=== PATIENT | male | born 1985 | race African-American/Black ===

== ENCOUNTER 2017-01-19 14:59 | Emergency (ER) | payer SELFPAY ==
--- NOTE | 2017-01-19 15:19 | RAD ---
AP CHEST: Indication: Chest pain. Comparison: 04-18-16 FINDINGS: Lungs are clear. Cardiomediastinal silhouette is within normal limits. Costophrenic angles excluded. No acute osseous abnormality is evident. IMPRESSION: No acute cardiopulmonary abnormality. POS: [facility]
[2017-01-19 15:23] LABS: #Basophils 0.1 thou/uL (0.0-0.2); #Eosinphils 0.2 thou/uL (0.0-0.7); #Lymphocytes 3.7 thou/uL (1.20-3.40); #Monocytes 0.8 thou/uL (0.11-0.59); #Neutrophils 4.7 thou/uL (1.40-6.50); %Eosinophils 2.2 % (0.0-10.0); Hematocrit 48.3 % (42.0-52.0); Mean Platelet Volume 6.4 fL (7.4-10.4); Red Blood Cell (RBC) Count 5.28 mill/uL (4.70-6.10); White Blood Cell (WBC) Count 9.4 thou/uL (4.8-10.8)
[2017-01-19 15:44] LABS: ALT (SGPT) 24 U/L (8-55); AST (SGOT) 25 U/L (5-34); Alkaline Phosphatase 85 U/L (40-150); Anion Gap 16 mmol/L (10-20); BUN (Urea Nitrogen) 9 mg/dL (8.9-20.6); Bilirubin, Total 0.9 mg/dL (0.2-1.2); CK (CPK) 362 U/L (30-200); Calc. Creatinine Clearance 0 mL/min (70-130); Calcium 9.6 mg/dL (7.8-10.44); Carbon Dioxide 25 mmol/L (22-29); Chloride 102 mmol/L (98-107); Estimated GFR-MDRD 84; Globulin 3.3 g/dL (2.4-3.5); Lipase 22 U/L (8-78); Protein, Total 7.5 g/dL (6.0-8.3)
[2017-01-19 15:51] LABS: Troponin I Less than 0.010 ng/mL (< 0.028)
[2017-01-19] MEDS ORDERED: Ketorolac Tromethamine 60 MG/2 ML VIAL ONE (17:21)
== END 2017-01-19 17:40 | disposition home or self-care (01) ==
LOC: ERS 14:59
DX: S29.011A Strain of muscle and tendon of front wall of thorax, initial encounter (principal); S29.012A Strain of muscle and tendon of back wall of thorax, initial encounter; S39.012A Strain of muscle, fascia and tendon of lower back, initial encounter; X50.0XXA Overexertion from strenuous movement or load, initial encounter
CPT/HCPCS: 71010; 80053; 82553; 83690; 84484; 85025; 93005; 96372; J1885

== ENCOUNTER 2017-03-06 10:38 | Emergency (ER) | payer SELFPAY | END 2017-03-06 11:25 | disposition home or self-care (01) | LOC: ERS 10:38 | DX: Z00.00 Encounter for general adult medical examination without abnormal findings (principal) | CPT/HCPCS: 99283 ==

== ENCOUNTER 2017-07-27 14:36 | Emergency (ER) | payer SELFPAY, OTHER ==
[2017-07-27 15:13] LABS: #Eosinphils 0.3 thou/uL (0.0-0.7); #Lymphocytes 2.9 thou/uL (1.20-3.40); #Monocytes 0.6 thou/uL (0.11-0.59); #Neutrophils 2.4 thou/uL (1.40-6.50); %Basophils 0.7 % (0.0-1.0); %Eosinophils 4.9 % (0.0-10.0); %Lymphocytes 46.2 % (21.0-51.0); %Monocytes 9.1 % (0.0-10.0); %Neutrophils 39.1 % (42.0-75.0); Hemoglobin 15.4 g/dL (14.0-18.0); Mean Corpuscular HGB CONC 33.3 g/dL (32.0-36.0); Mean Corpuscular Hemoglobin 29.7 pg (27.0-31.0); Mean Corpuscular Volume 89.4 fl (80.0-94.0); Mean Platelet Volume 6.5 fL (7.4-10.4); Platelet Count 373 thou/uL (130-400); RBC Distribution Width 12.4 % (11.5-14.5); Red Blood Cell (RBC) Count 5.17 mill/uL (4.70-6.10); White Blood Cell (WBC) Count 6.2 thou/uL (4.8-10.8)
[2017-07-27 15:34] LABS: ALT (SGPT) 18 U/L (8-55); AST (SGOT) 16 U/L (5-34); Albumin 4.2 g/dL (3.5-5.0); Alkaline Phosphatase 88 U/L (40-150); Anion Gap 11 mmol/L (10-20); BUN (Urea Nitrogen) 9 mg/dL (8.9-20.6); Bilirubin, Total 0.7 mg/dL (0.2-1.2); CK (CPK) 118 U/L (30-200); Calc. Creatinine Clearance 0 mL/min (70-130); Calcium 9.4 mg/dL (7.8-10.44); Carbon Dioxide 29 mmol/L (22-29); Chloride 104 mmol/L (98-107); Estimated GFR-MDRD 83; Globulin 2.9 g/dL (2.4-3.5); Glucose 96 mg/dL (70-105); Potassium 3.8 mmol/L (3.5-5.1); Protein, Total 7.1 g/dL (6.0-8.3); Sodium 140 mmol/L (136-145)
[2017-07-27 15:40] LABS: Troponin I Less than 0.010 ng/mL (< 0.028)
--- NOTE | 2017-07-27 15:56 | RAD ---
CHEST 1 VIEW: Date: 07/27/17 HISTORY: Chest pain and dizziness. FINDINGS: Heart size and mediastinum are within normal limits. Lungs are clear of infiltrates. Right hemidiaphr agm is slightly elevated. No change since the 01/19/17 study. IMPRESSION: No active intrathoracic disease. POS: [facility]
--- NOTE | 2017-10-02 14:22 | EKG ---
Test Reason : Blood Pressure : / mmHG Vent. Rate : 095 BPM Atrial Rate : 095 BPM P-R Int : 134 ms QRS Dur : 080 ms QT Int : 344 ms P-R-T Axes : 042 039 026 degrees QTc Int : 432 ms Normal sinus rhythm Normal ECG Confirmed by SALLY HAYES, PAM White ([id number]), deputy editor in chief CLAUDIA OCHOA ([id number]) on 10/02/2017 2:21:30 PM Referred By: Confirmed By:PAM ZAVALA MD
== END 2017-07-27 16:45 | disposition home or self-care (01) ==
LOC: ERS 14:36
DX: R07.89 Other chest pain (principal); F41.9 Anxiety disorder, unspecified; F17.210 Nicotine dependence, cigarettes, uncomplicated
CPT/HCPCS: 36415; 71045; 80053; 82553; 84484; 85025; 93005

== ENCOUNTER 2017-08-07 11:18 | Emergency (ER) | payer SELFPAY ==
[2017-08-07 11:51] LABS: Hemoglobin 14.4 g/dL (14.0-18.0); Mean Corpuscular HGB CONC 32.3 g/dL (32.0-36.0); Mean Corpuscular Hemoglobin 28.8 pg (27.0-31.0); Mean Corpuscular Volume 89.2 fl (80.0-94.0); Mean Platelet Volume 6.3 fL (7.4-10.4); Platelet Count 319 thou/uL (130-400); RBC Distribution Width 12.4 % (11.5-14.5); Red Blood Cell (RBC) Count 5.02 mill/uL (4.70-6.10)
[2017-08-07 12:11] LABS: CKMB 1.9 ng/mL (0-6.6); Troponin I Less than 0.010 ng/mL (< 0.028)
[2017-08-07 12:12] LABS: ALT (SGPT) 19 U/L (8-55); AST (SGOT) 22 U/L (5-34); Albumin 4.4 g/dL (3.5-5.0); Alkaline Phosphatase 79 U/L (40-150); Anion Gap 12 mmol/L (10-20); BUN (Urea Nitrogen) 11 mg/dL (8.9-20.6); Bilirubin, Total 1.5 mg/dL (0.2-1.2); CK (CPK) 343 U/L (30-200); Calc. Creatinine Clearance 0 mL/min (70-130); Calcium 9.7 mg/dL (7.8-10.44); Carbon Dioxide 26 mmol/L (22-29); Chloride 104 mmol/L (98-107); Estimated GFR-MDRD Greater than 90; Globulin 2.9 g/dL (2.4-3.5); Glucose 90 mg/dL (70-105); Potassium 3.9 mmol/L (3.5-5.1); Protein, Total 7.3 g/dL (6.0-8.3); Sodium 138 mmol/L (136-145)
[2017-08-07 12:29] LABS: Eosinophils 1 % (0-10); Lymphocytes 57 % (21-51); MDiff Complete? YES; Monocytes 7 % (0-10); Neutrophil 34 % (42-75); Reactive Lymphocytes 1 % (0-10)
== END 2017-08-07 12:53 | disposition home or self-care (01) ==
LOC: ERS 11:18
DX: E86.0 Dehydration (principal); F41.9 Anxiety disorder, unspecified; F17.210 Nicotine dependence, cigarettes, uncomplicated
CPT/HCPCS: 80053; 82553; 84484; 85025; 93005; 96360; 99406

== ENCOUNTER 2017-08-29 15:19 | Emergency (ER) | payer SELFPAY | END 2017-08-29 16:00 | disposition left against medical advice (07) | LOC: ERS 15:19 | DX: Z53.21 Procedure and treatment not carried out due to patient leaving prior to being seen by health care provider (principal) ==

== ENCOUNTER 2017-08-31 12:36 | Emergency (ER) | payer SELFPAY ==
--- NOTE | 2017-08-31 13:32 | RAD ---
CHEST PA AND LATERAL: Date: 08/31/17 HISTORY: 32-year-old male with history of cough, chest congestion, and chest pain. COMPARISON: 07/27/17. FINDINGS: Heart size is normal. The lungs are clear. The apices are not completely included on the PA radiograp h. IMPRESSION: No acute intrathoracic disease. Stable from prior study. No evidence for pneumonia. POS: [facility]
[2017-08-31] MEDS ORDERED: Dexamethasone 10 MG/ML VIAL ONE (14:06)
== END 2017-08-31 14:34 | disposition home or self-care (01) ==
LOC: ERS 12:36
DX: J40 Bronchitis, not specified as acute or chronic (principal); F41.9 Anxiety disorder, unspecified; F17.210 Nicotine dependence, cigarettes, uncomplicated
CPT/HCPCS: 71046; 93005; 96372; J1100

== ENCOUNTER 2017-09-02 19:52 | Emergency (ER) | payer SELFPAY ==
[2017-09-02 20:53] LABS: Troponin I Less than 0.010 ng/mL (< 0.028)
== END 2017-09-02 21:10 | disposition home or self-care (01) ==
LOC: ERS 19:52
DX: R07.89 Other chest pain (principal); F41.9 Anxiety disorder, unspecified; F17.210 Nicotine dependence, cigarettes, uncomplicated; Z71.6 Tobacco abuse counseling
CPT/HCPCS: 36415; 82553; 84484; 93005; 99406

== ENCOUNTER 2017-09-10 08:55 | Emergency (ER) | payer SELFPAY ==
[2017-09-10 09:28] LABS: #Basophils 0.1 thou/uL (0.0-0.2); #Eosinphils 0.3 thou/uL (0.0-0.7); #Lymphocytes 2.8 thou/uL (1.20-3.40); #Monocytes 0.6 thou/uL (0.11-0.59); #Neutrophils 3.5 thou/uL (1.40-6.50); %Basophils 1.4 % (0.0-1.0); %Eosinophils 3.5 % (0.0-10.0); %Lymphocytes 38.1 % (21.0-51.0); %Monocytes 8.6 % (0.0-10.0); %Neutrophils 48.4 % (42.0-75.0); Hemoglobin 15.9 g/dL (14.0-18.0); Mean Corpuscular HGB CONC 32.4 g/dL (32.0-36.0); Mean Corpuscular Hemoglobin 29.2 pg (27.0-31.0); Mean Corpuscular Volume 90.1 fl (80.0-94.0); Mean Platelet Volume 6.3 fL (7.4-10.4); Platelet Count 342 thou/uL (130-400); RBC Distribution Width 12.4 % (11.5-14.5); Red Blood Cell (RBC) Count 5.46 mill/uL (4.70-6.10); White Blood Cell (WBC) Count 7.3 thou/uL (4.8-10.8)
[2017-09-10 09:57] LABS: CKMB 0.7 ng/mL (0-6.6); Troponin I Less than 0.010 ng/mL (< 0.028)
[2017-09-10 09:57] LABS: ALT (SGPT) 23 U/L (8-55); AST (SGOT) 20 U/L (5-34); Albumin 4.4 g/dL (3.5-5.0); Alkaline Phosphatase 93 U/L (40-150); Anion Gap 12 mmol/L (10-20); BUN (Urea Nitrogen) 9 mg/dL (8.9-20.6); Bilirubin, Total 0.5 mg/dL (0.2-1.2); CK (CPK) 111 U/L (30-200); Calc. Creatinine Clearance 0 mL/min (70-130); Calcium 9.8 mg/dL (7.8-10.44); Carbon Dioxide 29 mmol/L (22-29); Chloride 103 mmol/L (98-107); Estimated GFR-MDRD 85; Globulin 3.2 g/dL (2.4-3.5); Glucose 93 mg/dL (70-105); Protein, Total 7.6 g/dL (6.0-8.3); Sodium 140 mmol/L (136-145)
--- NOTE | 2017-09-10 10:20 | RAD ---
PA AND LATERAL VIEWS OF CHEST: Date: 09/10/17 HISTORY: Chest pain. FINDINGS: Comparison made with exam of 08/31/17. The heart size is normal. Continued mild elevation of the right hemidiaphragm. No focal areas of cons olidation, pneumothorax, or pleural effusions are seen. No acute osseous abnormalities are identified . IMPRESSION: No radiographic evidence of acute cardiopulmonary process. POS: [facility]
== END 2017-09-10 10:45 | disposition home or self-care (01) ==
LOC: ERS 08:55
DX: F41.9 Anxiety disorder, unspecified (principal); R07.89 Other chest pain; Z71.6 Tobacco abuse counseling; F17.210 Nicotine dependence, cigarettes, uncomplicated
CPT/HCPCS: 36415; 71046; 80053; 82550; 82553; 84484; 85025; 93005; 99406

== ENCOUNTER 2017-09-14 10:43 | Emergency (ER) | payer SELFPAY ==
[2017-09-14] MEDS ORDERED: Ondansetron ODT 4 MG TAB ONE ×2 (11:18→11:26)
--- NOTE | 2017-10-02 15:43 | EKG ---
Test Reason : Blood Pressure : / mmHG Vent. Rate : 092 BPM Atrial Rate : 092 BPM P-R Int : 138 ms QRS Dur : 086 ms QT Int : 356 ms P-R-T Axes : 036 040 023 degrees QTc Int : 440 ms Poor data quality, interpretation may be adversely affected Normal sinus rhythm Normal ECG Confirmed by NICHO HAYES, HARRISON ([id number]), videotape editor CLAUDIA OHCOA ([id number]) on 10/02/2017 3:43:04 PM Referred By: Confirmed By:HARRISON TORRE MD
== END 2017-09-14 11:26 | disposition home or self-care (01) ==
LOC: ERS 10:43
DX: F14.10 Cocaine abuse, uncomplicated (principal); R11.2 Nausea with vomiting, unspecified; F41.9 Anxiety disorder, unspecified; F17.210 Nicotine dependence, cigarettes, uncomplicated
CPT/HCPCS: 93005; 99283; Q0162

== ENCOUNTER 2017-09-30 13:23 | Emergency (ER) | payer OTHER, SELFPAY ==
--- NOTE | 2017-09-30 14:07 | RAD ---
THREE VIEWS LUMBAR SPINE: Date: 09-30-17 Comparison: None. History: Fall, pain. FINDINGS: Lumbar pedicle are intact on frontal imaging. Lateral imaging demonstrates normal vertebral body heig ht and alignment. No displaced fracture. IMPRESSION: No acute findings. POS: [facility]
--- NOTE | 2017-09-30 14:35 | RAD ---
SACRUM AND COCCYX STANDARD: HISTORY: Fall, pain. COMPARISON: Lumbar spine radiograph same day. FINDINGS: The obturator rings are intact. SI joints are intact. Sacral struts are intact. The coccyx does not appear to be fractured nor does the sacrum. Soft tissue swelling of the buttocks . IMPRESSION: No definite fracture of the sacrum or coccyx. POS: [facility]
[2017-09-30] MEDS ORDERED: Acetaminophen 500 MG TAB ONE (14:51)
== END 2017-09-30 15:22 | disposition home or self-care (01) ==
LOC: ERS 13:23
DX: S39.012A Strain of muscle, fascia and tendon of lower back, initial encounter (principal); F41.9 Anxiety disorder, unspecified; Z87.891 Personal history of nicotine dependence; W17.89XA Other fall from one level to another, initial encounter
CPT/HCPCS: 72100; 72220

== ENCOUNTER 2017-10-02 11:16 | Emergency (ER) | payer SELFPAY ==
[2017-10-02 11:46] LABS: #Basophils 0.1 thou/uL (0.0-0.2); #Eosinphils 0.2 thou/uL (0.0-0.7); #Monocytes 0.5 thou/uL (0.11-0.59); #Neutrophils 2.6 thou/uL (1.40-6.50); %Basophils 1.2 % (0.0-1.0); %Eosinophils 3.5 % (0.0-10.0); %Lymphocytes 46.9 % (21.0-51.0); %Monocytes 8.2 % (0.0-10.0); %Neutrophils 40.2 % (42.0-75.0); Mean Corpuscular HGB CONC 34.2 g/dL (32.0-36.0); Mean Corpuscular Volume 87.8 fL (78.0-98.0); Mean Platelet Volume 6.4 fL (7.4-10.4); Platelet Count 320 thou/uL (130-400); RBC Distribution Width 12.1 % (11.5-14.5); Red Blood Cell (RBC) Count 5.35 mill/uL (4.70-6.10); White Blood Cell (WBC) Count 6.5 thou/uL (4.8-10.8)
[2017-10-02] MEDS ORDERED: Ondansetron ODT 4 MG TAB ONE (11:48)
[2017-10-02 12:06] LABS: ALT (SGPT) 21 U/L (8-55); AST (SGOT) 19 U/L (5-34); Albumin 4.7 g/dL (3.5-5.0); Alkaline Phosphatase 75 U/L (40-150); Anion Gap 15 mmol/L (10-20); BUN (Urea Nitrogen) 11 mg/dL (8.9-20.6); Calc. Creatinine Clearance 0 mL/min (70-130); Calcium 10.2 mg/dL (7.8-10.44); Carbon Dioxide 26 mmol/L (22-29); Chloride 104 mmol/L (98-107); Estimated GFR-MDRD 84; Globulin 3.2 g/dL (2.4-3.5); Glucose 86 mg/dL (70-105); Potassium 3.9 mmol/L (3.5-5.1); Protein, Total 7.9 g/dL (6.0-8.3); Sodium 141 mmol/L (136-145)
--- NOTE | 2017-10-02 12:08 | RAD ---
SINGLE VIEW OF THE CHEST: COMPARISON: 07/27/17. HISTORY: Chest pain and vomiting. FINDINGS: Single view of the chest shows a normal sized cardiomediastinal silhouette. There is no evidence of c onsolidation, mass, or pleural effusion. The bones are unremarkable. IMPRESSION: No evidence of acute cardiopulmonary disease. POS: [facility]
[2017-10-02 12:11] LABS: CKMB 2.7 ng/mL (0-6.6); Troponin I Less than 0.010 ng/mL (< 0.028)
== END 2017-10-02 12:45 | disposition home or self-care (01) ==
LOC: ERS 11:16
DX: R07.89 Other chest pain (principal); F41.9 Anxiety disorder, unspecified; F17.210 Nicotine dependence, cigarettes, uncomplicated; Z71.6 Tobacco abuse counseling; W11.XXXA Fall on and from ladder, initial encounter
CPT/HCPCS: 71045; 80053; 82553; 84484; 85025; 93005; 99406; Q0162

== ENCOUNTER 2017-10-03 00:27 | Emergency (ER) | payer SELFPAY ==
[2017-10-03 01:05] LABS: #Eosinphils 0.3 thou/uL (0.0-0.7); #Lymphocytes 3.4 thou/uL (1.20-3.40); #Monocytes 0.6 thou/uL (0.11-0.59); %Basophils 0.5 % (0.0-1.0); %Eosinophils 4.1 % (0.0-10.0); %Monocytes 7.8 % (0.0-10.0); %Neutrophils 40.7 % (42.0-75.0); Hemoglobin 15.1 g/dL (14.0-18.0); Mean Corpuscular HGB CONC 34.4 g/dL (32.0-36.0); Mean Corpuscular Hemoglobin 30.3 pg (27.0-31.0); Mean Corpuscular Volume 88.1 fL (78.0-98.0); Mean Platelet Volume 6.5 fL (7.4-10.4); Platelet Count 312 thou/uL (130-400); Red Blood Cell (RBC) Count 4.99 mill/uL (4.70-6.10); White Blood Cell (WBC) Count 7.3 thou/uL (4.8-10.8)
[2017-10-03 01:22] LABS: ALT (SGPT) 19 U/L (8-55); AST (SGOT) 20 U/L (5-34); Albumin 4.3 g/dL (3.5-5.0); Alkaline Phosphatase 94 U/L (40-150); Anion Gap 13 mmol/L (10-20); BUN (Urea Nitrogen) 15 mg/dL (8.9-20.6); Bilirubin, Total 0.6 mg/dL (0.2-1.2); Calc. Creatinine Clearance 0 mL/min (70-130); Calcium 9.5 mg/dL (7.8-10.44); Carbon Dioxide 27 mmol/L (22-29); Chloride 103 mmol/L (98-107); Estimated GFR-MDRD 82; Glucose 116 mg/dL (70-105); Potassium 3.6 mmol/L (3.5-5.1); Protein, Total 7.3 g/dL (6.0-8.3); Sodium 139 mmol/L (136-145)
[2017-10-03 01:26] LABS: Troponin I Less than 0.010 ng/mL (< 0.028)
== END 2017-10-03 02:22 | disposition home or self-care (01) ==
LOC: ERS 00:27
DX: R55 Syncope and collapse (principal); F41.9 Anxiety disorder, unspecified; F17.210 Nicotine dependence, cigarettes, uncomplicated; Z71.6 Tobacco abuse counseling
CPT/HCPCS: 36415; 80053; 82553; 84484; 85025; 93005; 99406

== ENCOUNTER 2017-10-10 12:19 | Emergency (ER) | payer SELFPAY ==
[2017-10-10] MEDS ORDERED: Ibuprofen 800 MG TAB ONE (13:17)
== END 2017-10-10 13:24 | disposition home or self-care (01) ==
LOC: ERS 12:19
DX: R51 Headache (principal); F41.9 Anxiety disorder, unspecified; F17.210 Nicotine dependence, cigarettes, uncomplicated
CPT/HCPCS: 99283

== ENCOUNTER 2017-12-05 15:46 | Emergency (ER) | payer SELFPAY ==
[2017-12-05 16:24] LABS: #Basophils 0.1 thou/uL (0.0-0.2); #Eosinphils 0.2 thou/uL (0.0-0.7); #Lymphocytes 3.1 thou/uL (1.20-3.40); #Monocytes 0.4 thou/uL (0.11-0.59); %Basophils 1.1 % (0.0-1.0); %Eosinophils 3.2 % (0.0-10.0); %Lymphocytes 45.4 % (21.0-51.0); %Monocytes 6.4 % (0.0-10.0); %Neutrophils 43.9 % (42.0-75.0); Hemoglobin 16.2 g/dL (14.0-18.0); Mean Corpuscular HGB CONC 34.4 g/dL (32.0-36.0); Mean Corpuscular Hemoglobin 30.4 pg (27.0-31.0); Mean Corpuscular Volume 88.3 fL (78.0-98.0); Mean Platelet Volume 6.5 fL (7.4-10.4); Platelet Count 355 thou/uL (130-400); Red Blood Cell (RBC) Count 5.34 mill/uL (4.70-6.10); White Blood Cell (WBC) Count 6.9 thou/uL (4.8-10.8)
[2017-12-05 16:49] LABS: ALT (SGPT) 19 U/L (8-55); AST (SGOT) 16 U/L (5-34); Albumin 4.5 g/dL (3.5-5.0); Alkaline Phosphatase 76 U/L (40-150); Anion Gap 12 mmol/L (10-20); BUN (Urea Nitrogen) 9 mg/dL (8.9-20.6); Bilirubin, Total 0.9 mg/dL (0.2-1.2); CK (CPK) 123 U/L (30-200); Calc. Creatinine Clearance 0 mL/min (70-130); Calcium 9.9 mg/dL (7.8-10.44); Carbon Dioxide 28 mmol/L (22-29); Chloride 104 mmol/L (98-107); Estimated GFR-MDRD 90; Globulin 3.3 g/dL (2.4-3.5); Glucose 100 mg/dL (70-105); Potassium 3.7 mmol/L (3.5-5.1); Protein, Total 7.8 g/dL (6.0-8.3); Sodium 140 mmol/L (136-145)
[2017-12-05 16:54] LABS: Troponin I Less than 0.010 ng/mL (< 0.028)
[2017-12-05] MEDS ORDERED: Lorazepam 1 MG TAB ONE (17:09)
--- NOTE | 2017-12-05 17:16 | RAD ---
PA AND LATERAL CHEST X-RAY: 12/05/2017 HISTORY: Chest pain. COMPARISON: 09/10/2017 FINDINGS: The cardiac silhouette and pulmonary vasculature are within normal limits. There is mild elevation o f the right hemidiaphragm. There has been no interval change from the prior study. IMPRESSION: No acute cardiopulmonary process. POS: [facility]
--- NOTE | 2017-12-09 13:39 | EKG ---
Test Reason : Blood Pressure : / mmHG Vent. Rate : 069 BPM Atrial Rate : 069 BPM P-R Int : 136 ms QRS Dur : 088 ms QT Int : 366 ms P-R-T Axes : 020 036 008 degrees QTc Int : 392 ms Sinus rhythm with sinus arrhythmia with occasional Premature ventricular complexes T wave abnormality, consider anterior ischemia Abnormal ECG Confirmed by MERCEDES GHOSH M.D. ([id number]), visual effects editor CLAUDIA OCHOA ([id number]) on 12/09/2017 1:39:21 PM Referred By: Confirmed By:MERCEDES GHOSH M.D.
== END 2017-12-05 17:52 | disposition home or self-care (01) ==
LOC: ERS 15:46
DX: R00.2 Palpitations (principal); F41.9 Anxiety disorder, unspecified; F17.210 Nicotine dependence, cigarettes, uncomplicated
CPT/HCPCS: 36415; 71046; 80053; 82553; 84484; 85025; 93005

== ENCOUNTER 2017-12-14 00:53 | Emergency (ER) | payer SELFPAY ==
[2017-12-14 01:46] LABS: #Basophils 0.1 thou/uL (0.0-0.2); #Eosinphils 0.3 thou/uL (0.0-0.7); #Lymphocytes 3.3 thou/uL (1.20-3.40); #Monocytes 0.5 thou/uL (0.11-0.59); #Neutrophils 2.6 thou/uL (1.40-6.50); %Basophils 1.6 % (0.0-1.0); %Lymphocytes 48.6 % (21.0-51.0); %Neutrophils 37.8 % (42.0-75.0); Hemoglobin 14.6 g/dL (14.0-18.0); Mean Corpuscular HGB CONC 33.8 g/dL (32.0-36.0); Mean Corpuscular Hemoglobin 30.2 pg (27.0-31.0); Mean Corpuscular Volume 89.5 fL (78.0-98.0); Mean Platelet Volume 6.7 fL (7.4-10.4); Platelet Count 322 thou/uL (130-400); RBC Distribution Width 11.8 % (11.5-14.5); Red Blood Cell (RBC) Count 4.83 mill/uL (4.70-6.10); White Blood Cell (WBC) Count 6.8 thou/uL (4.8-10.8)
[2017-12-14 02:14] LABS: ALT (SGPT) 24 U/L (8-55); AST (SGOT) 20 U/L (5-34); Albumin 4.1 g/dL (3.5-5.0); Alkaline Phosphatase 76 U/L (40-150); Anion Gap 15 mmol/L (10-20); BUN (Urea Nitrogen) 15 mg/dL (8.9-20.6); Bilirubin, Total 0.7 mg/dL (0.2-1.2); Calc. Creatinine Clearance 0 mL/min (70-130); Calcium 9.3 mg/dL (7.8-10.44); Carbon Dioxide 23 mmol/L (22-29); Chloride 104 mmol/L (98-107); Estimated GFR-MDRD 82; Globulin 3.2 g/dL (2.4-3.5); Glucose 98 mg/dL (70-105); Magnesium 2.2 mg/dL (1.6-2.6); Potassium 3.5 mmol/L (3.5-5.1); Protein, Total 7.3 g/dL (6.0-8.3); Sodium 138 mmol/L (136-145)
--- NOTE | 2017-12-14 08:07 | RAD ---
SINGLE VIEW OF THE CHEST: COMPARISON: 05/28/14. HISTORY: Heart palpitations and nausea. FINDINGS: Single view of the chest shows a normal sized cardiomediastinal silhouette. There is no evidence of c onsolidation, mass, or pleural effusion. The bones are unremarkable. IMPRESSION: No evidence of acute cardiopulmonary disease. POS: [facility]
== END 2017-12-14 03:05 | disposition home or self-care (01) ==
LOC: ERS 00:53
DX: R00.2 Palpitations (principal); F41.9 Anxiety disorder, unspecified; Z71.6 Tobacco abuse counseling; Z87.891 Personal history of nicotine dependence
CPT/HCPCS: 36415; 71045; 80053; 83735; 84443; 85025; 93005; 99406

== ENCOUNTER 2018-01-02 15:01 | Emergency (ER) | payer SELFPAY | END 2018-01-02 15:30 | disposition home or self-care (01) | LOC: ERS 15:01 | DX: J30.9 Allergic rhinitis, unspecified (principal); F41.9 Anxiety disorder, unspecified; Z87.891 Personal history of nicotine dependence | CPT/HCPCS: 99283 ==

== ENCOUNTER 2018-01-16 15:14 | Emergency (ER) | payer SELFPAY ==
[2018-01-16 16:24] LABS: #Basophils 0.1 thou/uL (0.0-0.2); #Eosinphils 0.2 thou/uL (0.0-0.7); #Lymphocytes 2.9 thou/uL (1.20-3.40); #Monocytes 0.5 thou/uL (0.11-0.59); #Neutrophils 3.3 thou/uL (1.40-6.50); %Basophils 0.9 % (0.0-1.0); %Eosinophils 2.3 % (0.0-10.0); %Lymphocytes 41.7 % (21.0-51.0); %Monocytes 7.4 % (0.0-10.0); %Neutrophils 47.7 % (42.0-75.0); Hemoglobin 15.4 g/dL (14.0-18.0); Mean Corpuscular HGB CONC 33.1 g/dL (32.0-36.0); Mean Corpuscular Hemoglobin 29.4 pg (27.0-31.0); Mean Corpuscular Volume 88.9 fL (78.0-98.0); Mean Platelet Volume 6.8 fL (7.4-10.4); Platelet Count 362 thou/uL (130-400); RBC Distribution Width 11.6 % (11.5-14.5); Red Blood Cell (RBC) Count 5.23 mill/uL (4.70-6.10); White Blood Cell (WBC) Count 6.9 thou/uL (4.8-10.8)
[2018-01-16 16:42] LABS: ALT (SGPT) 16 U/L (8-55); AST (SGOT) 16 U/L (5-34); Albumin 4.5 g/dL (3.5-5.0); Alkaline Phosphatase 76 U/L (40-150); Anion Gap 13 mmol/L (10-20); BUN (Urea Nitrogen) 12 mg/dL (8.9-20.6); Bilirubin, Total 0.9 mg/dL (0.2-1.2); Calc. Creatinine Clearance 0 mL/min (70-130); Calcium 9.7 mg/dL (7.8-10.44); Carbon Dioxide 25 mmol/L (22-29); Chloride 104 mmol/L (98-107); Estimated GFR-MDRD 85; Globulin 3.2 g/dL (2.4-3.5); Glucose 111 mg/dL (70-105); Potassium 3.6 mmol/L (3.5-5.1); Protein, Total 7.7 g/dL (6.0-8.3); Sodium 138 mmol/L (136-145)
[2018-01-16 16:47] LABS: CKMB 1.3 ng/mL (0-6.6); Troponin I Less than 0.010 ng/mL (< 0.028)
== END 2018-01-16 17:14 | disposition home or self-care (01) ==
LOC: ERS 15:14
DX: F41.9 Anxiety disorder, unspecified (principal); R07.9 Chest pain, unspecified; F17.210 Nicotine dependence, cigarettes, uncomplicated
CPT/HCPCS: 36415; 80053; 82553; 84484; 85025; 93005

== ENCOUNTER 2018-02-01 22:18 | Emergency (ER) | payer SELFPAY ==
--- NOTE | 2018-02-01 23:04 | RAD ---
PORTABLE AP CHEST X-RAY: 02/01/18 HISTORY: Sharp chest pain for two days. COMPARISON: 12/05/17. FINDINGS: The cardiac silhouette and pulmonary vasculature are within normal limits. The lungs are clear. There has been no interval change when compared to the prior exam. IMPRESSION: No acute cardiopulmonary process. POS: [facility]
[2018-02-01] MEDS ORDERED: Ibuprofen 200 MG TAB ONE (23:13)
== END 2018-02-01 23:23 | disposition home or self-care (01) ==
LOC: ERS 22:18
DX: R07.89 Other chest pain (principal); F41.9 Anxiety disorder, unspecified; Z87.891 Personal history of nicotine dependence; V80.010A Animal-rider injured by fall from or being thrown from horse in noncollision accident, initial encounter
CPT/HCPCS: 71046; 93005

== ENCOUNTER 2018-12-30 21:39 | Emergency (ER) | payer SELFPAY | END 2018-12-30 22:37 | disposition left against medical advice (07) | LOC: ERS 21:39 | DX: R55 Syncope and collapse (principal); F41.9 Anxiety disorder, unspecified; F17.210 Nicotine dependence, cigarettes, uncomplicated | CPT/HCPCS: 93005 ==

== ENCOUNTER 2019-12-19 13:02 | Emergency (ER) | payer OTHER ==
[2019-12-20 13:03] LABS: SARS-CoV-2 MS2 Positive; SARS-CoV-2 N Gene Negative; SARS-CoV-2 S Gene Negative; SARS-CoV-2 by NAA Not Detected (NotDetected); SARS-CoV-2 orf1ab Negative
== END 2019-12-19 13:35 | disposition home or self-care (01) ==
LOC: ERS 13:02
DX: J34.89 Other specified disorders of nose and nasal sinuses (principal); Z20.828 Contact with and (suspected) exposure to other viral communicable diseases; F41.9 Anxiety disorder, unspecified; F17.210 Nicotine dependence, cigarettes, uncomplicated
CPT/HCPCS: 87635; 99283; U0003

== ENCOUNTER 2020-01-07 15:58 | Emergency (ER) | payer SELFPAY ==
--- NOTE | 2020-01-07 16:54 | RAD ---
RADIOGRAPH CHEST 1 VIEW: DATE: 01/07/2020 HISTORY: 34-year-old male with tachycardia FINDINGS: There are no airspace densities, pulmonary edema, pneumothorax, or cardiomegaly. The lateral costophr enic angles are sharp. IMPRESSION: No acute cardiopulmonary findings.
[2020-01-07 17:26] LABS: #Eosinphils 0.2 thou/uL (0.0-0.7); #Lymphocytes 2.7 thou/uL (1.20-3.40); #Monocytes 0.5 thou/uL (0.11-0.59); #Neutrophils 3.2 thou/uL (1.40-6.50); %Basophils 0.7 % (0.0-1.0); %Eosinophils 3.6 % (0.0-10.0); %Lymphocytes 40.4 % (21.0-51.0); %Monocytes 7.8 % (0.0-10.0); %Neutrophils 47.5 % (42.0-75.0); Hemoglobin 15.1 g/dL (14.0-18.0); Mean Corpuscular HGB CONC 33.2 g/dL (32.0-36.0); Mean Corpuscular Hemoglobin 28.8 pg (27.0-31.0); Mean Corpuscular Volume 86.9 fL (78.0-98.0); Mean Platelet Volume 7.3 fL (7.4-10.4); Platelet Count 362 thou/uL (130-400); RBC Distribution Width 11.9 % (11.5-14.5); Red Blood Cell (RBC) Count 5.25 mill/uL (4.70-6.10); White Blood Cell (WBC) Count 6.7 thou/uL (4.8-10.8)
[2020-01-07 17:47] LABS: ALT (SGPT) 21 U/L (8-55); AST (SGOT) 20 U/L (5-34); Albumin 4.2 g/dL (3.5-5.0); Alkaline Phosphatase 81 U/L (40-110); Anion Gap 13 mmol/L (10-20); BUN (Urea Nitrogen) 10 mg/dL (8.9-20.6); Bilirubin, Total 0.7 mg/dL (0.2-1.2); Calc. Creatinine Clearance 0 mL/min (70-130); Calcium 9.1 mg/dL (7.8-10.44); Carbon Dioxide 27 mmol/L (22-29); Chloride 103 mmol/L (98-107); Estimated GFR-MDRD 78; Globulin 3.2 g/dL (2.4-3.5); Glucose 87 mg/dL (70-105); Magnesium 1.9 mg/dL (1.6-2.6); Potassium 3.8 mmol/L (3.5-5.1); Protein, Total 7.4 g/dL (6.0-8.3); Sodium 139 mmol/L (136-145)
[2020-01-07 18:10] LABS: Amphetamine Not Detected (NotDetected); Barbiturates Screen Not Detected (NotDetected); Benzodiazepine Screen Not Detected (NotDetected); Cocaine Metabolite Screen Not Detected (NotDetected); Medtox Control Line Valid? VALID (VALID); Medtox Reader # READER 4; Methadone Not Detected (NotDetected); Methamphetamine Not Detected (NotDetected); Opiate Screen Not Detected (NotDetected); Oxycodone Screen Not Detected (NotDetected); Phencyclidine (PCP) Not Detected (NotDetected); THC/Cannabinoid Screen Not Detected (NotDetected); Tricyclic Screen Not Detected (NotDetected)
== END 2020-01-07 18:31 | disposition home or self-care (01) ==
LOC: ERS 15:58
DX: R00.2 Palpitations (principal); F41.9 Anxiety disorder, unspecified
CPT/HCPCS: 71045; 80053; 80306; 83735; 84443; 84484; 85025; 93005

== ENCOUNTER 2020-02-05 13:10 | Emergency (ER) | payer OTHER, SELFPAY ==
[2020-02-05 14:05] LABS: #Basophils 0.1 thou/uL (0.0-0.2); #Eosinphils 0.2 thou/uL (0.0-0.7); #Lymphocytes 2.7 thou/uL (1.20-3.40); #Monocytes 0.6 thou/uL (0.11-0.59); %Basophils 1.2 % (0.0-1.0); %Eosinophils 3.4 % (0.0-10.0); %Lymphocytes 40.9 % (21.0-51.0); %Monocytes 8.4 % (0.0-10.0); %Neutrophils 46.1 % (42.0-75.0); Hemoglobin 15.3 g/dL (14.0-18.0); Mean Corpuscular HGB CONC 33.1 g/dL (32.0-36.0); Mean Corpuscular Hemoglobin 28.9 pg (27.0-31.0); Mean Corpuscular Volume 87.4 fL (78.0-98.0); Platelet Count 350 thou/uL (130-400); Red Blood Cell (RBC) Count 5.28 mill/uL (4.70-6.10); White Blood Cell (WBC) Count 6.5 thou/uL (4.8-10.8)
--- NOTE | 2020-02-05 14:13 | RAD ---
EXAM: Single view of the chest HISTORY: Chest pain from heart monitor COMPARISON: 01/07/2020 FINDINGS: Single view of the chest shows a normal sized cardiomediastinal silhouette. The cardiac mo nitoring device is unchanged in position. There is no evidence of consolidation, mass, or pleural effusion. No acute osseous abnormality. IMPRESSION: No evidence of acute cardiopulmonary disease
[2020-02-05 14:26] LABS: ALT (SGPT) 28 U/L (8-55); AST (SGOT) 21 U/L (5-34); Albumin 4.3 g/dL (3.5-5.0); Alkaline Phosphatase 66 U/L (40-110); Anion Gap 12 mmol/L (10-20); BUN (Urea Nitrogen) 12 mg/dL (8.9-20.6); Calc. Creatinine Clearance 0 mL/min (70-130); Calcium 9.6 mg/dL (7.8-10.44); Carbon Dioxide 28 mmol/L (22-29); Chloride 103 mmol/L (98-107); Estimated GFR-MDRD 76; Globulin 2.9 g/dL (2.4-3.5); Glucose 101 mg/dL (70-105); Potassium 3.6 mmol/L (3.5-5.1); Protein, Total 7.2 g/dL (6.0-8.3); Sodium 139 mmol/L (136-145)
[2020-02-05] MEDS ORDERED: Silver Nitrate Application 1 EACH ONE (15:14)
[2020-02-05] MEDS ORDERED: Ferric Subsulfate (ASTRINGYN) 8 GM VIAL ONE (15:17)
[2020-02-06 11:07] LABS: SARS-CoV-2 MS2 Positive; SARS-CoV-2 N Gene Negative; SARS-CoV-2 S Gene Negative; SARS-CoV-2 by NAA Not Detected (NotDetected); SARS-CoV-2 orf1ab Negative
== END 2020-02-05 15:50 | disposition home or self-care (01) ==
LOC: ERS 13:10
DX: R07.2 Precordial pain (principal); F41.9 Anxiety disorder, unspecified; Z20.828 Contact with and (suspected) exposure to other viral communicable diseases
CPT/HCPCS: 36415; 71045; 80053; 84484; 85025; 87635; 93005; U0003

== ENCOUNTER 2020-03-21 10:27 | Emergency (ER) | payer OTHER, SELFPAY ==
--- NOTE | 2020-03-21 11:41 | RAD ---
EXAM: CHEST ONE VIEW HISTORY: Headache and stinging and chest. COMPARISON: 02/05/2020 FINDINGS: Loop recording device again overlies the medial left lung base. Cardiac silhouette and pulmonary vasc ulature are within normal limits. The lungs are clear. The osseous structures are intact. No interval change from prior study. IMPRESSION: No acute cardiopulmonary process.
== END 2020-03-21 12:26 | disposition home or self-care (01) ==
LOC: ERS 10:27
DX: R00.2 Palpitations (principal); R07.2 Precordial pain; Z95.818 Presence of other cardiac implants and grafts
CPT/HCPCS: 71045; 93005

== ENCOUNTER 2020-03-22 12:21 | Emergency (ER) | payer SELFPAY ==
[2020-03-22 13:11] LABS: Hemoglobin 15.5 g/dL (14.0-18.0); Mean Corpuscular HGB CONC 33.1 g/dL (32.0-36.0); Mean Corpuscular Hemoglobin 28.9 pg (27.0-31.0); Mean Corpuscular Volume 87.2 fL (78.0-98.0); Platelet Count 345 thou/uL (130-400); RBC Distribution Width 11.9 % (11.5-14.5); Red Blood Cell (RBC) Count 5.37 mill/uL (4.70-6.10); White Blood Cell (WBC) Count 6.7 thou/uL (4.8-10.8)
[2020-03-22 13:12] LABS: ALT (SGPT) 16 U/L (8-55); AST (SGOT) 16 U/L (5-34); Albumin 4.4 g/dL (3.5-5.0); Alkaline Phosphatase 68 U/L (40-110); Anion Gap 14 mmol/L (10-20); BUN (Urea Nitrogen) 9 mg/dL (8.9-20.6); Bilirubin, Total 0.7 mg/dL (0.2-1.2); CK (CPK) 180 U/L (30-200); Calc. Creatinine Clearance 0 mL/min (70-130); Calcium 9.2 mg/dL (7.8-10.44); Carbon Dioxide 27 mmol/L (22-29); Chloride 103 mmol/L (98-107); Globulin 3.4 g/dL (2.4-3.5); Glucose 90 mg/dL (70-105); Potassium 3.7 mmol/L (3.5-5.1); Protein, Total 7.8 g/dL (6.0-8.3); Sodium 140 mmol/L (136-145)
[2020-03-22 13:28] LABS: Band 1 % (5-11); Eosinophils 2 % (0-10); Lymphocytes 47 % (21-51); MDiff Complete? YES; Monocytes 6 % (0-10); Neutrophil 31 % (42-75); Platelet Morphology Comment Appears Adequate; RBC Morphology Normal; Reactive Lymphocytes 13 % (0-10)
== END 2020-03-22 20:00 | disposition home or self-care (01) ==
LOC: ERS 12:21
DX: R00.2 Palpitations (principal); R00.0 Tachycardia, unspecified
CPT/HCPCS: 36415; 80053; 82550; 84484; 85025; 93005

== ENCOUNTER 2020-04-25 13:09 | Emergency (ER) | payer SELFPAY | END 2020-04-25 13:46 | disposition left against medical advice (07) | LOC: ERS 13:09 | DX: Z53.21 Procedure and treatment not carried out due to patient leaving prior to being seen by health care provider (principal) ==

== ENCOUNTER 2020-08-11 14:35 | Emergency (ER) | payer SELFPAY ==
[2020-08-11 15:41] LABS: #Eosinphils 0.1 thou/uL (0.0-0.7); #Lymphocytes 2.5 thou/uL (1.20-3.40); #Monocytes 0.5 thou/uL (0.11-0.59); #Neutrophils 3.8 thou/uL (1.40-6.50); %Basophils 0.6 % (0.0-1.0); %Lymphocytes 35.4 % (21.0-51.0); %Monocytes 7.7 % (0.0-10.0); %Neutrophils 54.4 % (42.0-75.0); Hemoglobin 14.6 g/dL (14.0-18.0); Mean Corpuscular HGB CONC 33.5 g/dL (32.0-36.0); Mean Corpuscular Hemoglobin 29.3 pg (27.0-31.0); Mean Corpuscular Volume 87.3 fL (78.0-98.0); Platelet Count 368 thou/uL (130-400); RBC Distribution Width 11.8 % (11.5-14.5); Red Blood Cell (RBC) Count 4.98 mill/uL (4.70-6.10)
[2020-08-11 16:01] LABS: ALT (SGPT) 17 U/L (8-55); AST (SGOT) 18 U/L (5-34); Albumin 4.1 g/dL (3.5-5.0); Alkaline Phosphatase 82 U/L (40-110); Anion Gap 11 mmol/L (10-20); BUN (Urea Nitrogen) 10 mg/dL (8.9-20.6); Bilirubin, Total 0.7 mg/dL (0.2-1.2); Calc. Creatinine Clearance 0 mL/min (70-130); Calcium 9.2 mg/dL (7.8-10.44); Carbon Dioxide 27 mmol/L (22-29); Chloride 107 mmol/L (98-107); Globulin 3.1 g/dL (2.4-3.5); Glucose 110 mg/dL (70-105); Potassium 3.5 mmol/L (3.5-5.1); Protein, Total 7.2 g/dL (6.0-8.3); Sodium 141 mmol/L (136-145)
[2020-08-11 16:20] LABS: Bilirubin Negative (Negative); Blood, Urine Negative (Negative); Clarity Clear (Clear); Glucose, Urine (Dipstick) Normal (Negative); Ketone, Urine Negative (Negative); Leukocyte Negative Leu/uL (Negative); Nitrite Negative (Negative); Protein, Urine (Dipstick) Negative (Neg-Trace); Specific Gravity, Urine 1.019 (1.002-1.036); pH, Urine 7.5 (5.0-9.0)
== END 2020-08-11 16:35 | disposition home or self-care (01) ==
LOC: ERS 14:35
DX: R19.7 Diarrhea, unspecified (principal); R39.15 Urgency of urination; R35.0 Frequency of micturition
CPT/HCPCS: 36415; 80053; 81003; 85025; 99284

== ENCOUNTER 2020-10-19 17:32 | Emergency (ER) | payer SELFPAY | END 2020-10-19 18:22 | disposition home or self-care (01) | LOC: ERS 17:32 | DX: Z00.00 Encounter for general adult medical examination without abnormal findings (principal) | CPT/HCPCS: 93005 ==

== ENCOUNTER 2021-01-05 10:21 | Inpatient (IN) | payer OTHER, SELFPAY ==
[~2021-01-05 10:21] MED LIST: Iopamidol-370 76% 500 ML 1 ML ONE
[2021-01-05] MEDS ORDERED: Midazolam HCl 2 mg/2 ml Vial ONE ×2 (10:32→11:24)
[2021-01-05] MEDS ORDERED: Ketorolac Tromethamine 30 MG/ML VIAL ONE (10:32)
[2021-01-05 10:48] LABS: INR-International Normal Ratio 0.9; PTT 23.8 sec (22.9-36.1); Prothrombin Time 12.6 sec (12.0-14.7)
[2021-01-05] MEDS ORDERED: Ketamine 50 MG/ML (10ML VIAL) ONE (10:48)
[2021-01-05 10:57] LABS: Mean Corpuscular HGB CONC 32.7 g/dL (32.0-36.0); Mean Corpuscular Hemoglobin 28.8 pg (27.0-31.0); Mean Corpuscular Volume 88.1 fL (78.0-98.0); Red Blood Cell (RBC) Count 5.56 mill/uL (4.70-6.10); White Blood Cell (WBC) Count 9.6 thou/uL (4.8-10.8)
[2021-01-05 10:58] LABS: #Lymphocytes 4.1 thou/uL (1.20-3.40); #Monocytes 0.6 thou/uL (0.11-0.59); #Neutrophils 4.7 thou/uL (1.40-6.50); %Eosinophils 1.6 % (0.0-10.0); %Lymphocytes 42.3 % (21.0-51.0); %Neutrophils 49.4 % (42.0-75.0); Mean Platelet Volume 6.9 fL (7.4-10.4); Platelet Count 406 thou/uL (130-400)
[2021-01-05 10:59] LABS: #Basophils 0.1 thou/uL (0.0-0.2); #Eosinphils 0.2 thou/uL (0.0-0.7); %Basophils 0.7 % (0.0-1.0)
[2021-01-05 11:06] LABS: Albumin 4.2 g/dL (3.5-5.0)
[2021-01-05 11:07] LABS: Chloride 104 mmol/L (98-107); Potassium 3.8 mmol/L (3.5-5.1); Sodium 137 mmol/L (136-145)
[2021-01-05 11:08] LABS: Calcium 9.6 mg/dL (7.8-10.44); Glucose 134 mg/dL (70-105)
[2021-01-05 11:09] LABS: Globulin 3.4 g/dL (2.4-3.5); Protein, Total 7.6 g/dL (6.0-8.3)
[2021-01-05 11:10] LABS: Anion Gap 13 mmol/L (10-20); Bilirubin, Total 0.8 mg/dL (0.2-1.2); Carbon Dioxide 24 mmol/L (22-29)
[2021-01-05 11:11] LABS: Alcohol Less than 10 mg/dL (Less than 10); Alkaline Phosphatase 76 U/L (40-110)
[2021-01-05 11:12] LABS: Calc. Creatinine Clearance 0 mL/min (70-130)
[2021-01-05 11:13] LABS: BUN (Urea Nitrogen) 8 mg/dL (8.9-20.6)
[2021-01-05 11:14] LABS: AST (SGOT) 22 U/L (5-34)
[2021-01-05 11:15] LABS: ALT (SGPT) 24 U/L (8-55)
[2021-01-05] MEDS ORDERED: Propofol 500 MG/50 ML VIAL ONE (11:30)
[2021-01-05] MEDS ORDERED: HYDROmorphone 0.5 MG/0.5 ML SYRINGE ONE (12:17)
[2021-01-05 13:14] LABS: Bilirubin Negative (Negative); Blood, Urine Negative (Negative); Clarity Clear (Clear); Glucose, Urine (Dipstick) Normal (Negative); Ketone, Urine Negative (Negative); Leukocyte Negative Leu/uL (Negative); Nitrite Negative (Negative); Protein, Urine (Dipstick) Negative (Neg-Trace); Specific Gravity, Urine 1.027 (1.002-1.036); Urobilinogen Normal mg/dL (Less than 2)
[2021-01-05] MEDS ORDERED: Morphine 2 MG/ML VIAL SLOW IVP PRN ×2 (14:01→20:46)
[2021-01-05] MEDS ORDERED: Ondansetron ODT 4 MG TAB PO PRN (14:01)
[2021-01-05] MEDS ORDERED: Ondansetron PF 4 MG/2 ML Vial IVP PRN (14:01)
[2021-01-05] MEDS ORDERED: Dextrose 50% Abboject 50 ML SYRINGE SLOW IVP PRN (14:01)
[2021-01-05] MEDS ORDERED: Dextrose 5% in Water 1,000 ML IV PRN (14:01)
[2021-01-05] MEDS ORDERED: hydrALAZINE 20 MG/ML VIAL SLOW IVP PRN (14:01)
[2021-01-05] MEDS ORDERED: Sodium Chloride 0.9% 1,000 ML IV SCH (14:15)
[2021-01-05] MEDS ORDERED: CEFAZOLIN 2 GM in Premix Bag 1 BAG IVPB SCH (16:30)
[2021-01-05 16:35] VITALS: BMI 32.0
[2021-01-05] MEDS: Acetaminophen 500 MG TAB PO SCH (17:43)
[2021-01-05] MEDS: Ketorolac Tromethamine 30 MG/ML VIAL IVP SCH (17:44)
[2021-01-05] MEDS: traMADol HCl 50 MG TAB PO SCH (17:44)
[2021-01-05 18:19] LABS: SARS-CoV-2 NAA Rapid Test Not Detected (NotDetected)
[2021-01-05] MEDS ORDERED: Famotidine 20 MG TAB PO SCH (21:00)
[2021-01-05] MEDS: Famotidine 20 MG TAB PO SCH (21:08)
[2021-01-05] MEDS: Senokot S 8.6-50 MG TAB PO SCH (21:09)
[2021-01-06] MEDS: Acetaminophen 500 MG TAB PO SCH ×5 (00:01→23:54)
[2021-01-06] MEDS: Ketorolac Tromethamine 30 MG/ML VIAL IVP SCH ×5 (00:01→23:55)
[2021-01-06] MEDS: traMADol HCl 50 MG TAB PO SCH ×5 (00:02→23:54)
[2021-01-06] MEDS: Sodium Chloride 0.9% 1,000 ML IV SCH ×3 (00:06→18:43)
[2021-01-06 06:14] LABS: #Basophils 0.1 thou/uL (0.0-0.2); #Eosinphils 0.1 thou/uL (0.0-0.7); #Lymphocytes 1.9 thou/uL (1.20-3.40); #Monocytes 0.7 thou/uL (0.11-0.59); #Neutrophils 4.2 thou/uL (1.40-6.50); %Eosinophils 1.3 % (0.0-10.0); %Lymphocytes 27.8 % (21.0-51.0); %Monocytes 9.8 % (0.0-10.0); %Neutrophils 60.1 % (42.0-75.0); Hemoglobin 13.1 g/dL (14.0-18.0); Mean Corpuscular HGB CONC 32.1 g/dL (32.0-36.0); Mean Corpuscular Hemoglobin 28.7 pg (27.0-31.0); Mean Corpuscular Volume 89.2 fL (78.0-98.0); Mean Platelet Volume 7.1 fL (7.4-10.4); Platelet Count 275 thou/uL (130-400); Red Blood Cell (RBC) Count 4.57 mill/uL (4.70-6.10); White Blood Cell (WBC) Count 6.9 thou/uL (4.8-10.8)
[2021-01-06 06:33] LABS: Anion Gap 9 mmol/L (10-20); BUN (Urea Nitrogen) 9 mg/dL (8.9-20.6); Calc. Creatinine Clearance 148 mL/min (70-130); Calcium 8.8 mg/dL (7.8-10.44); Carbon Dioxide 29 mmol/L (22-29); Chloride 103 mmol/L (98-107); Glucose 105 mg/dL (70-105); Magnesium 1.9 mg/dL (1.6-2.6); Phosphorus 3.9 mg/dL (2.3-4.7); Potassium 4.1 mmol/L (3.5-5.1); Sodium 137 mmol/L (136-145)
[2021-01-06] MEDS: Senokot S 8.6-50 MG TAB PO SCH ×2 (10:38→20:14)
[2021-01-06] MEDS: Famotidine 20 MG TAB PO SCH ×2 (10:38→20:14)
[2021-01-06] MEDS: Polyethylene Glycol 3350 17 GM Packet PO SCH (10:38)
[2021-01-06] MEDS ORDERED: Midazolam HCl 2 mg/2 ml Vial ONE (11:30)
[2021-01-06] MEDS ORDERED: Fentanyl 100 MCG/2 ML VIAL ONE ×2 (11:48→13:44)
[2021-01-06] MEDS ORDERED: Magnesium 2 GM/50 ML 2 GM in Premix Bag 1 BAG IVPB SCH (12:45)
[2021-01-06] MEDS ORDERED: Lidocaine 1% PF 5 ML VIAL ONE (12:51)
[2021-01-06] MEDS ORDERED: Ketorolac Tromethamine 30 MG/ML VIAL ONE (12:51)
[2021-01-06] MEDS ORDERED: PROPOFOL 200 MG/20 ML VIAL ONE (12:51)
[2021-01-06] MEDS ORDERED: Rocuronium Bromide 10 MG/ML (10ML VIAL) ONE (12:51)
[2021-01-06] MEDS ORDERED: Ondansetron PF 4 MG/2 ML Vial ONE (12:51)
[2021-01-06] MEDS ORDERED: PHENYLEPHRINE-NS 100 MCG/ML 10 ML SYRINGE ONE ×2 (12:51→14:58)
[2021-01-06] MEDS ORDERED: Glycopyrrolate 0.2 MG/ML 5 ML SYRINGE ONE (12:51)
[2021-01-06] MEDS ORDERED: Metoclopramide HCl 10 MG/2 ML VIAL ONE (12:51)
[2021-01-06] MEDS ORDERED: Dexamethasone 20 MG/5 ML VIAL ONE (12:51)
[2021-01-06] MEDS ORDERED: HYDROmorphone 2 MG/ML VIAL ONE (15:34)
[2021-01-06] MEDS ORDERED: Albumin 5% 500 ML ONE (16:00)
[2021-01-06] MEDS ORDERED: CEFAZOLIN 1 GM VIAL ONE (17:31)
[2021-01-06] MEDS ORDERED: Meperidine HCl/PF 25 MG/ML VIAL ONE (18:18)
[2021-01-06] MEDS: ceFAZolin Sodium/D5W 2 GM in Premix Bag 1 BAG IVPB SCH (20:13)
[2021-01-06] MEDS: Cyclobenzaprine 10 MG TAB PO PRN (20:15)
[2021-01-06] MEDS: traMADol HCl 50 MG TAB PO PRN (20:16)
[2021-01-07] MEDS: Sodium Chloride 0.9% 1,000 ML IV SCH (03:45)
[2021-01-07] MEDS: Acetaminophen 500 MG TAB PO SCH ×3 (05:11→18:19)
[2021-01-07] MEDS: ceFAZolin Sodium/D5W 2 GM in Premix Bag 1 BAG IVPB SCH (05:11)
[2021-01-07] MEDS: Ketorolac Tromethamine 30 MG/ML VIAL IVP SCH (05:12)
[2021-01-07] MEDS: traMADol HCl 50 MG TAB PO SCH ×3 (05:12→18:19)
[2021-01-07 06:34] LABS: #Lymphocytes 1.8 thou/uL (1.20-3.40); #Monocytes 1.1 thou/uL (0.11-0.59); %Eosinophils 0.1 % (0.0-10.0); %Lymphocytes 15.4 % (21.0-51.0); %Neutrophils 75.6 % (42.0-75.0); Hemoglobin 8.7 g/dL (14.0-18.0); Mean Corpuscular HGB CONC 32.3 g/dL (32.0-36.0); Mean Corpuscular Hemoglobin 28.7 pg (27.0-31.0); Mean Corpuscular Volume 88.8 fL (78.0-98.0); Platelet Count 239 thou/uL (130-400); RBC Distribution Width 11.5 % (11.5-14.5); Red Blood Cell (RBC) Count 3.05 mill/uL (4.70-6.10); White Blood Cell (WBC) Count 11.9 thou/uL (4.8-10.8)
[2021-01-07] MEDS ORDERED: Ferrous Sulfate 325 MG TAB PO SCH (08:00)
[2021-01-07] MEDS ORDERED: Lactated Ringer's 1,000 ML IV SCH (09:00)
[2021-01-07] MEDS ORDERED: Enoxaparin Sodium 40 MG/0.4 ML SYRINGE SC SCH (09:00)
[2021-01-07] MEDS: Ascorbic Acid 500 mg Chewable Tablet PO SCH ×2 (09:47→20:55)
[2021-01-07] MEDS: Famotidine 20 MG TAB PO SCH (09:47)
[2021-01-07] MEDS: Senokot S 8.6-50 MG TAB PO SCH ×2 (09:47→20:54)
[2021-01-07] MEDS: Ferrous Sulfate 325 MG TAB PO SCH ×2 (09:48→20:54)
[2021-01-07] MEDS: Polyethylene Glycol 3350 17 GM Packet PO SCH (09:49)
[2021-01-07] MEDS: Lactated Ringer's 1,000 ML IV SCH ×2 (09:56→18:22)
[2021-01-07 10:31] LABS: Chloride 102 mmol/L (98-107); Potassium 4.1 mmol/L (3.5-5.1); Sodium 135 mmol/L (136-145)
[2021-01-07 10:32] LABS: Calcium 8.3 mg/dL (7.8-10.44); Glucose 106 mg/dL (70-105)
[2021-01-07 10:34] LABS: Anion Gap 8 mmol/L (10-20); Carbon Dioxide 29 mmol/L (22-29)
[2021-01-07 10:36] LABS: BUN (Urea Nitrogen) 12 mg/dL (8.9-20.6); Calc. Creatinine Clearance 144 mL/min (70-130)
[2021-01-07 10:37] LABS: Magnesium 2.1 mg/dL (1.6-2.6)
[2021-01-07 10:41] LABS: Phosphorus 2.9 mg/dL (2.3-4.7)
[2021-01-07] MEDS: traMADol HCl 50 MG TAB PO PRN (16:28)
[2021-01-07] MEDS: Cyclobenzaprine 10 MG TAB PO PRN (16:29)
[2021-01-08] MEDS: Lactated Ringer's 1,000 ML IV SCH ×2 (00:27→07:51)
[2021-01-08] MEDS: traMADol HCl 50 MG TAB PO SCH ×4 (00:27→17:58)
[2021-01-08] MEDS: Acetaminophen 500 MG TAB PO SCH ×4 (00:28→18:01)
[2021-01-08 06:59] LABS: #Eosinphils 0.1 thou/uL (0.0-0.7); #Lymphocytes 2.2 thou/uL (1.20-3.40); #Monocytes 0.9 thou/uL (0.11-0.59); #Neutrophils 6.9 thou/uL (1.40-6.50); %Basophils 0.3 % (0.0-1.0); %Eosinophils 0.6 % (0.0-10.0); %Lymphocytes 21.3 % (21.0-51.0); %Monocytes 9.2 % (0.0-10.0); %Neutrophils 68.5 % (42.0-75.0); Hemoglobin 7.7 g/dL (14.0-18.0); Mean Corpuscular HGB CONC 33.2 g/dL (32.0-36.0); Mean Corpuscular Hemoglobin 29.1 pg (27.0-31.0); Mean Corpuscular Volume 87.6 fL (78.0-98.0); Mean Platelet Volume 7.1 fL (7.4-10.4); Platelet Count 215 thou/uL (130-400); RBC Distribution Width 11.6 % (11.5-14.5); Red Blood Cell (RBC) Count 2.63 mill/uL (4.70-6.10); White Blood Cell (WBC) Count 10.1 thou/uL (4.8-10.8)
[2021-01-08] MEDS: Polyethylene Glycol 3350 17 GM Packet PO SCH (08:46)
[2021-01-08] MEDS: Ascorbic Acid 500 mg Chewable Tablet PO SCH ×2 (08:47→20:18)
[2021-01-08] MEDS: Ferrous Sulfate 325 MG TAB PO SCH ×2 (08:47→20:17)
[2021-01-08] MEDS: Senokot S 8.6-50 MG TAB PO SCH ×3 (08:47→20:20)
[2021-01-08] MEDS: Enoxaparin Sodium 40 MG/0.4 ML SYRINGE SC SCH (08:48)
[2021-01-09] MEDS: Acetaminophen 500 MG TAB PO SCH ×5 (00:38→23:31)
[2021-01-09] MEDS: traMADol HCl 50 MG TAB PO SCH ×5 (00:38→23:30)
[2021-01-09 06:38] LABS: #Basophils 0.1 thou/uL (0.0-0.2); #Eosinphils 0.2 thou/uL (0.0-0.7); #Neutrophils 6.2 thou/uL (1.40-6.50); %Basophils 0.6 % (0.0-1.0); %Eosinophils 1.6 % (0.0-10.0); %Monocytes 9.4 % (0.0-10.0); %Neutrophils 59.6 % (42.0-75.0); Hemoglobin 9.6 g/dL (14.0-18.0); Mean Corpuscular HGB CONC 34.5 g/dL (32.0-36.0); Mean Corpuscular Hemoglobin 30.1 pg (27.0-31.0); Mean Corpuscular Volume 87.3 fL (78.0-98.0); Platelet Count 275 thou/uL (130-400); RBC Distribution Width 11.6 % (11.5-14.5); Red Blood Cell (RBC) Count 3.18 mill/uL (4.70-6.10); White Blood Cell (WBC) Count 10.4 thou/uL (4.8-10.8)
[2021-01-09 07:02] LABS: Anion Gap 10 mmol/L (10-20); BUN (Urea Nitrogen) 9 mg/dL (8.9-20.6); Calc. Creatinine Clearance 162 mL/min (70-130); Calcium 8.9 mg/dL (7.8-10.44); Carbon Dioxide 32 mmol/L (22-29); Chloride 99 mmol/L (98-107); Glucose 98 mg/dL (70-105); Magnesium 2.1 mg/dL (1.6-2.6); Phosphorus 3.9 mg/dL (2.3-4.7); Potassium 4.4 mmol/L (3.5-5.1); Sodium 137 mmol/L (136-145)
[2021-01-09] MEDS: Enoxaparin Sodium 40 MG/0.4 ML SYRINGE SC SCH (09:26)
[2021-01-09] MEDS: Ascorbic Acid 500 mg Chewable Tablet PO SCH ×2 (09:26→20:28)
[2021-01-09] MEDS: Senokot S 8.6-50 MG TAB PO SCH ×2 (09:27→20:28)
[2021-01-09] MEDS: Ferrous Sulfate 325 MG TAB PO SCH ×2 (09:39→20:28)
[2021-01-09] MEDS: Polyethylene Glycol 3350 17 GM Packet PO SCH ×2 (09:39→09:42)
[2021-01-09] MEDS ORDERED: Cyclobenzaprine 10 MG TAB PO PRN (17:11)
[2021-01-09] MEDS: Gabapentin 300 MG CAP PO SCH (20:28)
[2021-01-10] MEDS: traMADol HCl 50 MG TAB PO PRN (03:32)
[2021-01-10] MEDS: traMADol HCl 50 MG TAB PO SCH ×4 (05:49→23:23)
[2021-01-10] MEDS: Acetaminophen 500 MG TAB PO SCH ×4 (06:45→23:30)
[2021-01-10] MEDS: Polyethylene Glycol 3350 17 GM Packet PO SCH ×2 (08:47→10:24)
[2021-01-10] MEDS: Enoxaparin Sodium 40 MG/0.4 ML SYRINGE SC SCH (08:47)
[2021-01-10] MEDS: Gabapentin 300 MG CAP PO SCH ×3 (08:48→20:29)
[2021-01-10] MEDS: Ferrous Sulfate 325 MG TAB PO SCH ×2 (08:48→20:29)
[2021-01-10] MEDS: Ascorbic Acid 500 mg Chewable Tablet PO SCH ×2 (08:48→20:29)
[2021-01-10] MEDS: Senokot S 8.6-50 MG TAB PO SCH ×2 (08:48→20:29)
[2021-01-10] MEDS ORDERED: traMADol HCl 50 MG TAB PO PRN (10:18)
[2021-01-10] MEDS: Ibuprofen 200 MG TAB PO SCH ×2 (12:27→17:54)
[2021-01-11] MEDS: Ibuprofen 200 MG TAB PO SCH ×3 (02:17→19:16)
[2021-01-11] MEDS: traMADol HCl 50 MG TAB PO SCH ×3 (06:05→17:37)
[2021-01-11] MEDS: Acetaminophen 500 MG TAB PO SCH ×3 (06:06→17:44)
[2021-01-11] MEDS: Ferrous Sulfate 325 MG TAB PO SCH ×2 (08:42→21:15)
[2021-01-11] MEDS: Polyethylene Glycol 3350 17 GM Packet PO SCH (08:42)
[2021-01-11] MEDS: Enoxaparin Sodium 40 MG/0.4 ML SYRINGE SC SCH (08:42)
[2021-01-11] MEDS: Gabapentin 300 MG CAP PO SCH (08:42)
[2021-01-11] MEDS: Ascorbic Acid 500 mg Chewable Tablet PO SCH ×2 (08:43→21:15)
[2021-01-11] MEDS: Senokot S 8.6-50 MG TAB PO SCH ×3 (09:38→22:51)
[2021-01-11] MEDS: Gabapentin 100 MG CAP PO SCH ×3 (10:00→21:14)
[2021-01-12] MEDS: Acetaminophen 500 MG TAB PO SCH ×4 (00:21→20:20)
[2021-01-12] MEDS: traMADol HCl 50 MG TAB PO SCH ×4 (02:50→18:18)
[2021-01-12] MEDS: Ibuprofen 200 MG TAB PO SCH ×3 (02:50→21:31)
[2021-01-12 05:57] LABS: #Basophils 0.1 thou/uL (0.0-0.2); #Eosinphils 0.2 thou/uL (0.0-0.7); #Lymphocytes 2.4 thou/uL (1.20-3.40); #Neutrophils 7.2 thou/uL (1.40-6.50); %Basophils 0.6 % (0.0-1.0); %Eosinophils 2.2 % (0.0-10.0); %Lymphocytes 21.9 % (21.0-51.0); %Monocytes 9.1 % (0.0-10.0); %Neutrophils 66.2 % (42.0-75.0); Hemoglobin 9.2 g/dL (14.0-18.0); Mean Corpuscular HGB CONC 34.3 g/dL (32.0-36.0); Mean Corpuscular Volume 87.4 fL (78.0-98.0); Mean Platelet Volume 6.4 fL (7.4-10.4); Platelet Count 450 thou/uL (130-400); RBC Distribution Width 11.8 % (11.5-14.5); Red Blood Cell (RBC) Count 3.07 mill/uL (4.70-6.10); White Blood Cell (WBC) Count 10.9 thou/uL (4.8-10.8)
[2021-01-12] MEDS: Polyethylene Glycol 3350 17 GM Packet PO SCH (09:21)
[2021-01-12] MEDS: Gabapentin 100 MG CAP PO SCH ×3 (09:22→21:33)
[2021-01-12] MEDS: Senokot S 8.6-50 MG TAB PO SCH ×2 (09:22→21:34)
[2021-01-12] MEDS: Ascorbic Acid 500 mg Chewable Tablet PO SCH ×2 (09:22→21:32)
[2021-01-12] MEDS: Ferrous Sulfate 325 MG TAB PO SCH ×2 (09:22→21:32)
[2021-01-12] MEDS: Enoxaparin Sodium 40 MG/0.4 ML SYRINGE SC SCH (09:23)
[2021-01-13] MEDS: Acetaminophen 500 MG TAB PO SCH ×4 (00:29→12:05)
[2021-01-13] MEDS: traMADol HCl 50 MG TAB PO SCH ×4 (00:29→12:06)
[2021-01-13] MEDS: Ibuprofen 200 MG TAB PO SCH ×2 (02:40→10:57)
[2021-01-13] MEDS: Senokot S 8.6-50 MG TAB PO SCH (08:28)
[2021-01-13] MEDS: Gabapentin 100 MG CAP PO SCH (08:28)
[2021-01-13] MEDS: Polyethylene Glycol 3350 17 GM Packet PO SCH (08:28)
[2021-01-13] MEDS: Enoxaparin Sodium 40 MG/0.4 ML SYRINGE SC SCH (08:29)
[2021-01-13] MEDS: Ascorbic Acid 500 mg Chewable Tablet PO SCH (08:29)
[2021-01-13] MEDS: Ferrous Sulfate 325 MG TAB PO SCH (08:29)
[2021-01-13 08:33] VITALS: TEMP 98
[2021-01-13 11:57] VITALS: BP 102/71
== END 2021-01-13 13:00 | disposition home or self-care (01) | DRG 958 ==
LOC: ERS 10:21 → SURG B 14:01
PROVIDERS: ADMIT Surgery; ATTEND Surgery
PROC: 0SSBXZZ Reposition Left Hip Joint, External Approach (ICD-10-PCS; 2021-01-05)
PROC: 0QS504Z Reposition Left Acetabulum with Internal Fixation Device, Open Approach (ICD-10-PCS; principal; 2021-01-06)
PROC: 30233N1 Transfusion of Nonautologous Red Blood Cells into Peripheral Vein, Percutaneous Approach (ICD-10-PCS; 2021-01-08)
DX: S32.462A Displaced associated transverse-posterior fracture of left acetabulum, initial encounter for closed fracture (principal); S06.9X9A Unspecified intracranial injury with loss of consciousness of unspecified duration, initial encounter; D62 Acute posthemorrhagic anemia; Z20.822 Contact with and (suspected) exposure to COVID-19; V43.52XA Car driver injured in collision with other type car in traffic accident, initial encounter
CPT/HCPCS: 27250; 36415; 36430; 70450; 71045; 71260; 72125; 72170; 74177; 76000; 76377; 80048; 80053; 80307; 81003; 83735; 84100; 85025; 85610; 85730; 86850; 86900; 86901; 93005; 94760; 96374; 96375; 96376; C1713; G0390; J0690; J1100; J1170; J1650; J1885; J2175; J2250; J2405; J2704; J2765; J3010; J3475; J7050; J7120; P9016; P9045; Q9967; U0002

== ENCOUNTER 2021-01-24 08:51 | Observation (INO) | payer OTHER, SELFPAY ==
[2021-01-24 09:32] LABS: #Basophils 0.1 thou/uL (0.0-0.2); #Eosinphils 0.1 thou/uL (0.0-0.7); #Lymphocytes 2.2 thou/uL (1.20-3.40); #Monocytes 0.4 thou/uL (0.11-0.59); #Neutrophils 3.3 thou/uL (1.40-6.50); %Basophils 1.5 % (0.0-1.0); %Eosinophils 2.4 % (0.0-10.0); %Lymphocytes 36.3 % (21.0-51.0); %Monocytes 6.4 % (0.0-10.0); %Neutrophils 53.5 % (42.0-75.0); Hemoglobin 11.6 g/dL (14.0-18.0); Mean Corpuscular HGB CONC 33.3 g/dL (32.0-36.0); Mean Corpuscular Volume 87.2 fL (78.0-98.0); Mean Platelet Volume 6.1 fL (7.4-10.4); Platelet Count 767 thou/uL (130-400); RBC Distribution Width 13.1 % (11.5-14.5); Red Blood Cell (RBC) Count 4.01 mill/uL (4.70-6.10); White Blood Cell (WBC) Count 6.2 thou/uL (4.8-10.8)
[2021-01-24] MEDS ORDERED: Iopamidol-370 76% 500 ML 1 ML ONE (09:38)
[2021-01-24 09:54] LABS: ALT (SGPT) 39 U/L (8-55); AST (SGOT) 23 U/L (5-34); Albumin 4.1 g/dL (3.5-5.0); Alkaline Phosphatase 99 U/L (40-110); Anion Gap 14 mmol/L (10-20); BUN (Urea Nitrogen) 13 mg/dL (8.9-20.6); Bilirubin, Total 0.7 mg/dL (0.2-1.2); Calc. Creatinine Clearance 0 mL/min (70-130); Calcium 9.8 mg/dL (7.8-10.44); Carbon Dioxide 25 mmol/L (22-29); Chloride 101 mmol/L (98-107); Globulin 3.1 g/dL (2.4-3.5); Glucose 95 mg/dL (70-105); Potassium 4.2 mmol/L (3.5-5.1); Protein, Total 7.2 g/dL (6.0-8.3); Sodium 136 mmol/L (136-145)
[2021-01-24] MEDS ORDERED: Dextrose 50% Abboject 50 ML SYRINGE SLOW IVP PRN (18:06)
[2021-01-24] MEDS ORDERED: Ondansetron PF 4 MG/2 ML Vial IVP PRN (18:06)
[2021-01-24] MEDS ORDERED: Dextrose 5% in Water 1,000 ML IV PRN (18:06)
[2021-01-24] MEDS ORDERED: Ondansetron ODT 4 MG TAB PO PRN (18:06)
[2021-01-24] MEDS ORDERED: Sodium Chloride 0.9% 1,000 ML IV SCH (18:06)
[2021-01-24] MEDS ORDERED: traMADol HCl 50 MG TAB PO PRN (18:06)
[2021-01-24] MEDS ORDERED: hydrALAZINE 20 MG/ML VIAL SLOW IVP PRN (18:06)
[2021-01-24 18:31] VITALS: BMI 30.6
[2021-01-24] MEDS: Ibuprofen 800 MG TAB PO SCH (18:57)
[2021-01-24] MEDS: Acetaminophen 500 MG TAB PO SCH (18:57)
[2021-01-24 20:13] LABS: SARS-CoV-2 NAA Rapid Test Not Detected (NotDetected)
[2021-01-24] MEDS: Apixaban 5 MG TAB PO SCH (21:17)
[2021-01-24] MEDS: Famotidine 20 MG TAB PO SCH (21:18)
[2021-01-25] MEDS: Acetaminophen 500 MG TAB PO SCH ×3 (00:41→11:56)
[2021-01-25] MEDS: Ibuprofen 800 MG TAB PO SCH ×2 (02:46→09:20)
[2021-01-25 04:46] LABS: #Basophils 0.1 thou/uL (0.0-0.2); #Eosinphils 0.1 thou/uL (0.0-0.7); #Lymphocytes 2.5 thou/uL (1.20-3.40); #Monocytes 0.5 thou/uL (0.11-0.59); #Neutrophils 2.5 thou/uL (1.40-6.50); %Basophils 1.4 % (0.0-1.0); %Eosinophils 2.5 % (0.0-10.0); %Monocytes 9.3 % (0.0-10.0); %Neutrophils 43.8 % (42.0-75.0); Hemoglobin 10.5 g/dL (14.0-18.0); Mean Corpuscular HGB CONC 33.3 g/dL (32.0-36.0); Mean Corpuscular Hemoglobin 29.4 pg (27.0-31.0); Mean Corpuscular Volume 88.3 fL (78.0-98.0); Mean Platelet Volume 6.2 fL (7.4-10.4); Platelet Count 657 thou/uL (130-400); Red Blood Cell (RBC) Count 3.58 mill/uL (4.70-6.10); White Blood Cell (WBC) Count 5.7 thou/uL (4.8-10.8)
[2021-01-25 04:51] LABS: INR-International Normal Ratio 1.2
[2021-01-25 04:52] LABS: PTT 33.4 sec (22.9-36.1)
[2021-01-25 04:59] LABS: Anion Gap 14 mmol/L (10-20); BUN (Urea Nitrogen) 13 mg/dL (8.9-20.6); Calc. Creatinine Clearance 169 mL/min (70-130); Calcium 9.3 mg/dL (7.8-10.44); Carbon Dioxide 24 mmol/L (22-29); Chloride 106 mmol/L (98-107); Glucose 88 mg/dL (70-105); Potassium 4.2 mmol/L (3.5-5.1); Sodium 140 mmol/L (136-145)
[2021-01-25] MEDS: traMADol HCl 50 MG TAB PO PRN ×2 (06:22→11:55)
[2021-01-25] MEDS: Famotidine 20 MG TAB PO SCH (09:20)
[2021-01-25] MEDS: Apixaban 5 MG TAB PO SCH (09:20)
[2021-01-25 12:03] VITALS: BP 118/59; TEMP 97.8
[2021-01-31] MEDS ORDERED: Apixaban 5 MG TAB PO SCH (21:00)
== END 2021-01-25 15:41 | disposition home or self-care (01) ==
LOC: ERS 08:51 → ERHOLD 10:11 → INTOOBSV 10:11 → 2NO 16:17
PROVIDERS: ADMIT Emergency Medicine; ATTEND Emergency Medicine
DX: I26.93 Single subsegmental thrombotic pulmonary embolism without acute cor pulmonale (principal); I08.1 Rheumatic disorders of both mitral and tricuspid valves; I49.9 Cardiac arrhythmia, unspecified; Z20.822 Contact with and (suspected) exposure to COVID-19; Z79.891 Long term (current) use of opiate analgesic; Z79.899 Other long term (current) drug therapy; Z95.818 Presence of other cardiac implants and grafts
CPT/HCPCS: 36415; 71045; 71275; 80048; 80053; 83605; 84484; 85025; 85610; 85730; 93005; 93306; 93970; G0378; J7050; Q9967; U0002

== ENCOUNTER 2021-01-27 20:42 | Emergency (ER) | payer SELFPAY ==
[2021-01-27] MEDS ORDERED: Ketorolac Tromethamine 30 MG/ML VIAL ONE (21:18)
[2021-01-27 21:23] LABS: #Eosinphils 0.1 thou/uL (0.0-0.7); #Lymphocytes 2.6 thou/uL (1.20-3.40); #Monocytes 0.5 thou/uL (0.11-0.59); #Neutrophils 3.4 thou/uL (1.40-6.50); %Basophils 0.3 % (0.0-1.0); %Eosinophils 1.4 % (0.0-10.0); %Lymphocytes 39.6 % (21.0-51.0); %Monocytes 7.6 % (0.0-10.0); %Neutrophils 51.1 % (42.0-75.0); Hemoglobin 12.1 g/dL (14.0-18.0); Mean Corpuscular HGB CONC 33.7 g/dL (32.0-36.0); Mean Corpuscular Hemoglobin 29.5 pg (27.0-31.0); Mean Corpuscular Volume 87.6 fL (78.0-98.0); Mean Platelet Volume 6.2 fL (7.4-10.4); Platelet Count 678 thou/uL (130-400); RBC Distribution Width 13.1 % (11.5-14.5); Red Blood Cell (RBC) Count 4.11 mill/uL (4.70-6.10); White Blood Cell (WBC) Count 6.7 thou/uL (4.8-10.8)
[2021-01-27 21:44] LABS: ALT (SGPT) 26 U/L (8-55); AST (SGOT) 18 U/L (5-34); Albumin 4.4 g/dL (3.5-5.0); Alkaline Phosphatase 101 U/L (40-110); Anion Gap 17 mmol/L (10-20); BUN (Urea Nitrogen) 14 mg/dL (8.9-20.6); Bilirubin, Total 0.7 mg/dL (0.2-1.2); Calc. Creatinine Clearance 0 mL/min (70-130); Calcium 10.1 mg/dL (7.8-10.44); Carbon Dioxide 25 mmol/L (22-29); Chloride 103 mmol/L (98-107); Globulin 3.1 g/dL (2.4-3.5); Glucose 97 mg/dL (70-105); Potassium 4.1 mmol/L (3.5-5.1); Protein, Total 7.5 g/dL (6.0-8.3); Sodium 141 mmol/L (136-145)
== END 2021-01-27 22:45 | disposition home or self-care (01) ==
LOC: ERS 20:42
DX: R09.1 Pleurisy (principal); R07.9 Chest pain, unspecified; Z79.01 Long term (current) use of anticoagulants; Z79.899 Other long term (current) drug therapy
CPT/HCPCS: 71045; 80053; 83880; 84484; 85025; 93005; J1885

== ENCOUNTER 2021-02-03 03:53 | Emergency (ER) | payer SELFPAY ==
[2021-02-03 04:42] LABS: Hemoglobin 11.7 g/dL (14.0-18.0); Mean Corpuscular HGB CONC 32.3 g/dL (32.0-36.0); Mean Corpuscular Hemoglobin 28.1 pg (27.0-31.0); Mean Platelet Volume 6.5 fL (7.4-10.4); Platelet Count 449 thou/uL (130-400); Red Blood Cell (RBC) Count 4.16 mill/uL (4.70-6.10); White Blood Cell (WBC) Count 4.9 thou/uL (4.8-10.8)
[2021-02-03 04:57] LABS: ALT (SGPT) 15 U/L (8-55); AST (SGOT) 16 U/L (5-34); Alkaline Phosphatase 85 U/L (40-110); Anion Gap 14 mmol/L (10-20); BUN (Urea Nitrogen) 13 mg/dL (8.9-20.6); Bilirubin, Total 0.7 mg/dL (0.2-1.2); Calc. Creatinine Clearance 0 mL/min (70-130); Calcium 9.6 mg/dL (7.8-10.44); Carbon Dioxide 25 mmol/L (22-29); Chloride 103 mmol/L (98-107); Globulin 2.7 g/dL (2.4-3.5); Glucose 95 mg/dL (70-105); Protein, Total 6.7 g/dL (6.0-8.3); Sodium 138 mmol/L (136-145)
[2021-02-03 05:00] LABS: Eosinophils 3 % (0-10); Lymphocytes 47 % (21-51); MDiff Complete? YES; Monocytes 6 % (0-10); Neutrophil 44 % (42-75)
== END 2021-02-03 07:09 | disposition home or self-care (01) ==
LOC: ERS 03:53
DX: R00.2 Palpitations (principal)
CPT/HCPCS: 36415; 71045; 80053; 84484; 85025; 93005; 94760

== ENCOUNTER 2021-03-10 17:48 | Emergency (ER) | payer SELFPAY ==
[2021-03-10 18:39] LABS: #Basophils 0.1 thou/uL (0.0-0.2); #Eosinphils 0.1 thou/uL (0.0-0.7); #Lymphocytes 3.6 thou/uL (1.20-3.40); #Monocytes 0.6 thou/uL (0.11-0.59); #Neutrophils 4.5 thou/uL (1.40-6.50); %Basophils 0.7 % (0.0-1.0); %Eosinophils 1.6 % (0.0-10.0); %Lymphocytes 40.3 % (21.0-51.0); %Monocytes 6.9 % (0.0-10.0); %Neutrophils 50.5 % (42.0-75.0); Mean Corpuscular HGB CONC 32.1 g/dL (32.0-36.0); Mean Corpuscular Hemoglobin 27.4 pg (27.0-31.0); Mean Corpuscular Volume 85.4 fL (78.0-98.0); Mean Platelet Volume 6.9 fL (7.4-10.4); Platelet Count 379 thou/uL (130-400); RBC Distribution Width 12.8 % (11.5-14.5); Red Blood Cell (RBC) Count 4.74 mill/uL (4.70-6.10); White Blood Cell (WBC) Count 8.9 thou/uL (4.8-10.8)
[2021-03-10 19:11] LABS: ALT (SGPT) 14 U/L (8-55); AST (SGOT) 19 U/L (5-34); Albumin 4.3 g/dL (3.5-5.0); Alkaline Phosphatase 81 U/L (40-110); Anion Gap 8 mmol/L (10-20); BUN (Urea Nitrogen) 13 mg/dL (8.9-20.6); Bilirubin, Total 0.6 mg/dL (0.2-1.2); Calc. Creatinine Clearance 0 mL/min (70-130); Calcium 10.1 mg/dL (7.8-10.44); Carbon Dioxide 31 mmol/L (22-29); Chloride 104 mmol/L (98-107); Glucose 90 mg/dL (70-105); Potassium 4.1 mmol/L (3.5-5.1); Protein, Total 7.3 g/dL (6.0-8.3); Sodium 139 mmol/L (136-145)
[2021-03-10 19:12] LABS: CKMB 0.8 ng/mL (0-6.6)
== END 2021-03-10 21:36 | disposition home or self-care (01) ==
LOC: ERS 17:48
DX: R00.2 Palpitations (principal); Z87.891 Personal history of nicotine dependence
CPT/HCPCS: 36415; 71045; 80053; 82553; 84484; 85025; 93005

== ENCOUNTER 2021-03-30 12:55 | Emergency (ER) | payer SELFPAY | END 2021-03-30 15:36 | disposition home or self-care (01) | LOC: ERS 12:55 | DX: B34.9 Viral infection, unspecified (principal); Z20.822 Contact with and (suspected) exposure to COVID-19 | CPT/HCPCS: 71275; Q9967 ==

== ENCOUNTER 2021-05-09 18:42 | Emergency (ER) | payer SELFPAY ==
[2021-05-09 19:41] LABS: #Monocytes 0.5 thou/uL (0.11-0.59); #Neutrophils 3.4 thou/uL (1.40-6.50); %Basophils 0.2 % (0.0-1.0); %Eosinophils 0.2 % (0.0-10.0); %Lymphocytes 33.4 % (21.0-51.0); %Monocytes 8.7 % (0.0-10.0); %Neutrophils 57.5 % (42.0-75.0); Hemoglobin 13.3 g/dL (14.0-18.0); Mean Corpuscular Hemoglobin 26.5 pg (27.0-31.0); Mean Corpuscular Volume 82.6 fL (78.0-98.0); Platelet Count 283 thou/uL (130-400); RBC Distribution Width 13.7 % (11.5-14.5); Red Blood Cell (RBC) Count 5.03 mill/uL (4.70-6.10); White Blood Cell (WBC) Count 5.9 thou/uL (4.8-10.8)
[2021-05-09 20:01] LABS: ALT (SGPT) 24 U/L (8-55); AST (SGOT) 30 U/L (5-34); Albumin 3.8 g/dL (3.5-5.0); Alkaline Phosphatase 59 U/L (40-110); Anion Gap 13 mmol/L (10-20); BUN (Urea Nitrogen) 8 mg/dL (8.9-20.6); Bilirubin, Total 0.5 mg/dL (0.2-1.2); Calc. Creatinine Clearance 0 mL/min (70-130); Calcium 8.6 mg/dL (7.8-10.44); Carbon Dioxide 26 mmol/L (22-29); Chloride 100 mmol/L (98-107); Globulin 3.5 g/dL (2.4-3.5); Glucose 105 mg/dL (70-105); Potassium 3.9 mmol/L (3.5-5.1); Protein, Total 7.3 g/dL (6.0-8.3); Sodium 135 mmol/L (136-145)
[2021-05-09 20:14] LABS: Bilirubin Negative (Negative); Blood, Urine Negative (Negative); Clarity Clear (Clear); Glucose, Urine (Dipstick) Normal (Negative); Ketone, Urine Negative (Negative); Leukocyte Negative Leu/uL (Negative); Nitrite Negative (Negative); Protein, Urine (Dipstick) 10 mg/dL (Neg-Trace); Specific Gravity, Urine 1.019 (1.002-1.036); Urobilinogen Normal mg/dL (Less than 2)
== END 2021-05-09 20:42 | disposition home or self-care (01) ==
LOC: ERS 18:42
DX: A08.4 Viral intestinal infection, unspecified (principal); Z86.711 Personal history of pulmonary embolism
CPT/HCPCS: 36415; 80053; 81003; 85025; 99284

== ENCOUNTER 2021-09-08 11:16 | Emergency (ER) | payer SELFPAY ==
[2021-09-08 11:38] LABS: #Eosinphils 0.1 thou/uL (0.0-0.7); #Lymphocytes 2.5 thou/uL (1.20-3.40); #Monocytes 0.4 thou/uL (0.11-0.59); #Neutrophils 2.4 thou/uL (1.40-6.50); %Basophils 0.7 % (0.0-1.0); %Eosinophils 1.8 % (0.0-10.0); %Lymphocytes 46.8 % (21.0-51.0); %Monocytes 7.1 % (0.0-10.0); %Neutrophils 43.6 % (42.0-75.0); Hemoglobin 15.4 g/dL (14.0-18.0); Mean Corpuscular HGB CONC 32.6 g/dL (32.0-36.0); Mean Corpuscular Hemoglobin 28.8 pg (27.0-31.0); Mean Corpuscular Volume 88.4 fL (78.0-98.0); Mean Platelet Volume 6.8 fL (7.4-10.4); Platelet Count 389 thou/uL (130-400); RBC Distribution Width 12.6 % (11.5-14.5); Red Blood Cell (RBC) Count 5.34 mill/uL (4.70-6.10); White Blood Cell (WBC) Count 5.4 thou/uL (4.8-10.8)
[2021-09-08 11:57] LABS: ALT (SGPT) 18 U/L (8-55); AST (SGOT) 15 U/L (5-34); Albumin 4.2 g/dL (3.5-5.0); Alkaline Phosphatase 79 U/L (40-110); Anion Gap 14 mmol/L (10-20); BUN (Urea Nitrogen) 11 mg/dL (8.9-20.6); Bilirubin, Total 0.9 mg/dL (0.2-1.2); Calc. Creatinine Clearance 0 mL/min (70-130); Calcium 9.5 mg/dL (7.8-10.44); Carbon Dioxide 25 mmol/L (22-29); Chloride 104 mmol/L (98-107); Globulin 3.1 g/dL (2.4-3.5); Glucose 98 mg/dL (70-105); Lipase 24 U/L (8-78); Potassium 4.1 mmol/L (3.5-5.1); Protein, Total 7.3 g/dL (6.0-8.3); Sodium 139 mmol/L (136-145)
[2021-09-08] MEDS ORDERED: Ketorolac Tromethamine 30 MG/ML VIAL ONE (12:50)
== END 2021-09-08 13:07 | disposition home or self-care (01) ==
LOC: ERS 11:16
DX: R07.89 Other chest pain (principal)
CPT/HCPCS: 36415; 71045; 80053; 83690; 84484; 85025; 85379; 93005; J1885

== ENCOUNTER 2022-11-20 14:48 | Emergency (ER) | payer SELFPAY ==
[2022-11-20 15:50] LABS: #Basophils 0.1 thou/uL (0.0-0.2); #Eosinphils 0.1 thou/uL (0.0-0.7); #Monocytes 0.5 thou/uL (0.11-0.59); #Neutrophils 2.8 thou/uL (1.40-6.50); %Basophils 0.7 % (0.0-1.0); %Eosinophils 1.6 % (0.0-10.0); %Lymphocytes 54.2 % (21.0-51.0); %Neutrophils 36.2 % (42.0-75.0); Hematocrit 44.9 % (42.0-52.0); Hemoglobin 14.7 g/dL (14.0-18.0); Mean Corpuscular HGB CONC 32.7 g/dL (32.0-36.0); Mean Corpuscular Hemoglobin 28.3 pg (27.0-31.0); Mean Corpuscular Volume 86.5 fl (78.0-98.0); Mean Platelet Volume 9.3 fL (7.4-10.4); Platelet Count 406 10x3/uL (130-400); Red Blood Cell (RBC) Count 5.19 mill/uL (4.70-6.10); White Blood Cell (WBC) Count 7.6 10x3/uL (4.8-10.8)
[2022-11-20 16:20] LABS: ALT (SGPT) 11 U/L (8-55); AST (SGOT) 12 U/L (5-34); Albumin 4.3 g/dL (3.5-5.0); Alkaline Phosphatase 65 U/L (40-110); Anion Gap 14 mmol/L (10-20); BUN (Urea Nitrogen) 9 mg/dL (8.9-20.6); Bilirubin, Total 0.5 mg/dL (0.2-1.2); Calc. Creatinine Clearance 0 mL/min (70-130); Calcium 9.4 mg/dL (7.8-10.44); Carbon Dioxide 24 mmol/L (22-29); Chloride 105 mmol/L (98-107); Estimated GFR 93; Globulin 3.1 g/dL (2.4-3.5); Glucose 97 mg/dL (70-105); Potassium 3.6 mmol/L (3.5-5.1); Protein, Total 7.4 g/dL (6.0-8.3); Sodium 139 mmol/L (136-145)
[2022-11-20 16:23] LABS: Troponin I Less than 0.010 ng/mL (< 0.028)
== END 2022-11-20 16:55 | disposition home or self-care (01) ==
LOC: ERS 14:48
DX: R06.00 Dyspnea, unspecified (principal); R55 Syncope and collapse
CPT/HCPCS: 71045; 80053; 84484; 85025; 93005